=== PATIENT | male | born 1980 | race Hispanic/Latino ===

== ENCOUNTER 2018-06-09 15:02 | Emergency (ER) | payer SELFPAY ==
[~2018-06-09 15:02] MED LIST: ISOVUE-370 76%-LOCM 1 ML ONE
[2018-06-09 15:35] LABS: #Basophils 0.1 thou/uL (0.0-0.2); #Eosinphils 0.1 thou/uL (0.0-0.7); #Lymphocytes 2.5 thou/uL (1.20-3.40); #Monocytes 0.7 thou/uL (0.11-0.59); #Neutrophils 8.6 thou/uL (1.40-6.50); %Basophils 0.6 % (0.0-1.0); %Eosinophils 0.8 % (0.0-10.0); %Lymphocytes 20.8 % (21.0-51.0); %Monocytes 5.9 % (0.0-10.0); %Neutrophils 71.9 % (42.0-75.0); Mean Corpuscular HGB CONC 33.9 g/dL (32.0-36.0); Mean Corpuscular Hemoglobin 29.8 pg (27.0-31.0); Mean Corpuscular Volume 87.9 fL (78.0-98.0); Mean Platelet Volume 7.9 fL (7.4-10.4); Platelet Count 291 thou/uL (130-400); RBC Distribution Width 11.6 % (11.5-14.5); Red Blood Cell (RBC) Count 5.04 mill/uL (4.70-6.10); White Blood Cell (WBC) Count 11.9 thou/uL (4.8-10.8)
[2018-06-09 15:56] LABS: ALT (SGPT) 21 U/L (8-55); AST (SGOT) 22 U/L (5-34); Albumin 4.3 g/dL (3.5-5.0); Alkaline Phosphatase 98 U/L (40-150); Anion Gap 12 mmol/L (10-20); BUN (Urea Nitrogen) 10 mg/dL (8.9-20.6); Bilirubin, Total 1.3 mg/dL (0.2-1.2); Calc. Creatinine Clearance 0 mL/min (70-130); Calcium 9.2 mg/dL (7.8-10.44); Carbon Dioxide 25 mmol/L (22-29); Chloride 100 mmol/L (98-107); Estimated GFR-MDRD 87; Globulin 3.8 g/dL (2.4-3.5); Glucose 112 mg/dL (70-105); Potassium 3.5 mmol/L (3.5-5.1); Protein, Total 8.1 g/dL (6.0-8.3); Sodium 133 mmol/L (136-145)
[2018-06-09 15:57] LABS: Bilirubin Negative (Negative); Blood, Urine Negative (Negative); Clarity CLEAR (Clear); Glucose, Urine (Dipstick) Negative (Negative); Leukocyte Negative (Negative); Nitrite Negative (Negative); Protein, Urine (Dipstick) Negative (Neg-Trace); Specific Gravity, Urine 1.011 (1.002-1.036); pH, Urine 6.5 (5.0-9.0)
[2018-06-09] MEDS ORDERED: Ciprofloxacin 500 MG TAB ONE (18:15)
[2018-06-09] MEDS ORDERED: metroNIDAZOLE 250 MG TAB ONE (18:15)
--- NOTE | 2018-06-09 19:04 | CT ---
CT ABDOMEN WITH CONTRAST 06/09/18 HISTORY: Pain. COMPARISON: None. FINDINGS: Dependent atelectatic changes in the lung bases. Heart size is normal. No significant pericardial flu id. The descending thoracic aorta and abdominal aorta have a normal caliber. No periaortic fat strand ing. Contracted gallbladder. Portal vein is patent. Liver, spleen, pancreas, and adrenal glands have appropriate enhancement. There is symmetric enhancement of the kidneys. Bilaterally, no obstructive uropathy. No gastrohepatic, retrocrural or periportal lymphadenopathy. There is free fluid and stranding in the mesentery surrounding the sigmoid colon. There is evidence o f diverticulosis. There is inflammatory changes that are presumed to be due to diverticulitis. No frank dence of perforation. No evidence of an abscess. Evaluation of the alimentary canal is limited by the lack of oral contrast. Gastric mucosa, duodenum and multiple normal caliber small bowel loops are no rmal. Ileocecal junction is normal Fecalization of segments of small bowel is likely due to incompete nt ileocecal valve. Normal caliber appendix. There is scattered fecal material in a nondistended, non dilated colon. Coronal images do demonstrate some mild enhancement involving the distal right ureter, likely reactiv e secondary to inflammatory changes associated with the aforementioned diverticulitis. There are a few nonspecific periaortic lymph nodes. PELVIC CT: Inflammatory changes secondary to diverticulitis. Urinary bladder is unremarkable. No pelvic mass, ly mphadenopathy or free air. No lytic or blastic lesions in the osseous structures. IMPRESSION: 1. Diverticulitis involving the sigmoid colon. There is inflammatory change involving the adjace nt mesentery. 2. Normal caliber appendix. 3. Abnormal enhancement involving the distal right ureter at the level of inflammatory change. E nhancement is presumed to be reactive. No evidence of associated obstructive uropathy at this time. POS: [facility]
== END 2018-06-09 18:35 | disposition home or self-care (01) ==
LOC: ERS 15:02
DX: K57.92 Diverticulitis of intestine, part unspecified, without perforation or abscess without bleeding (principal); F17.210 Nicotine dependence, cigarettes, uncomplicated
CPT/HCPCS: 74177; 80053; 81003; 85025